=== PATIENT | male | born 1955 | race Caucasian/White ===

== ENCOUNTER 2021-12-23 13:00 | Outpatient (RCR) | payer MEDICARE, OTHER, SELFPAY | END 2021-12-24 10:59 | disposition home or self-care (01) | LOC: HO.OT 13:00 | PROVIDERS: Visit Provider Student in an Organized Health Care Education/Training Program | DX: G56.03 Carpal tunnel syndrome, bilateral upper limbs (principal) | CPT/HCPCS: 97033; 97035; 97110; 97140; 97165 ==

== ENCOUNTER → 2022-01-20 11:01 | Outpatient (BNVA) | payer MEDICARE, OTHER, SELFPAY | PROVIDERS: PCP Nurse Practitioner Family; Visit Provider Orthopaedic Surgery | DX: G56.01 Carpal tunnel syndrome, right upper limb (principal); G56.02 Carpal tunnel syndrome, left upper limb | CPT/HCPCS: 99202 ==

== ENCOUNTER 2022-10-06 13:00 | Outpatient (RCR) | payer MEDICARE, OTHER, SELFPAY | END 2022-11-15 10:54 | disposition home or self-care (01) | LOC: HO.OT 13:00 | PROVIDERS: Visit Provider Physician Assistant Medical | DX: Z98.890 Other specified postprocedural states (principal) | CPT/HCPCS: 97110; 97140; 97165 ==

== ENCOUNTER 2024-05-18 07:30 | Outpatient (RCR) | payer MEDICARE, OTHER, SELFPAY | END 2024-05-22 11:16 | disposition home or self-care (01) | LOC: HO.OT 07:30 | PROVIDERS: PCP Physician Assistant; Visit Provider Physician Assistant Medical | DX: Z98.890 Other specified postprocedural states (principal) | CPT/HCPCS: 97110; 97140; 97166 ==

== ENCOUNTER 2024-09-19 09:03 | Outpatient (RCR) | payer MEDICARE, OTHER, SELFPAY | END 2024-09-19 11:11 | disposition home or self-care (01) | LOC: HO.OT 09:03 | PROVIDERS: PCP Internal Medicine Nephrology; Visit Provider Orthopaedic Surgery Hand Surgery | DX: M65.331 Trigger finger, right middle finger (principal); M65.4 Radial styloid tenosynovitis [de Quervain] | CPT/HCPCS: 97110; 97140; 97165; 97760 ==